=== PATIENT | male | born 1950 | race Caucasian/White ===

== ENCOUNTER 2017-09-28 16:13 | Emergency (ER) | payer OTHER ==
--- NOTE | 2017-09-28 16:35 | CPEKG ---
Heart Rate: 72 RR Interval: 833 P-R Interval: 172 QRSD Interval: 98 QT Interval: 416 QTC Interval: 456 P [place]: 27 QRS [place]: -21 T Wave [place]: 24 EKG Severity - OTHERWISE NORMAL ECG - EKG Impression: SINUS RHYTHM EKG Impression: VENTRICULAR PREMATURE COMPLEX EKG Impression: BORDERLINE LEFT AXIS DEVIATION Electronically Signed By: Ruthann Milan 28-Sep-2017 22:13:29
--- NOTE | 2017-09-28 16:46 | EDPHY ---
HPI/HX/ROS/PE/MDM Narrative: CHIEF COMPLAINT: Abnormal EKG HISTORY OF PRESENT ILLNESS: The patient is 67 y/o male with a history of an aortic valve stenosis and hypertension complaining of an abnormal EKG today. He went to see his PCP today for Medicare requirements and subsequently had an abnormal EKG which concerned his PCP. She advised that the patient present to the emergency department. In April, he saw Dr. Painting, quotation checker, regarding his hypertension medications and had a normal EKG at this time. Dr. Painting did preform an echocardiogram and noticed aortic valve stenosis. Denies chest pain, shortness of breath, pedal edema. Takes aspirin daily. No fever, chills, palpitations, vomiting, diarrhea, urinary complaints, headache , lightheadedness. REVIEW OF SYSTEMS: Aside from elements discussed in the HPI, a comprehensive 10-point review of systems was reviewed and is negative. PAST MEDICAL HISTORY: Aortic valve stenosis, hypertension, GERD SOCIAL HISTORY: Family at bedside, lives in [facility] VITAL SIGNS: Reviewed by me GENERAL: Well-developed, well-nourished, resting comfortably in no respiratory distress. HEENT: Atraumatic. Eyes: No icterus, no injection. Mouth: moist mucous membranes. No erythema or lesions. Neck: supple with no adenopathy. LUNGS: Clear to auscultation bilaterally, no wheezes, rhonchi or rales. CARDIAC: Regular rate and rhythm, soft systolic murmur, no rubs or gallops. ABDOMEN: Soft, nontender, nondistended, bowel sounds normal. BACK: No CVA tenderness. EXTREMITIES: No trauma. No edema. Range of motion is normal throughout. NEURO: Alert and oriented, grossly nonfocal. SKIN: Warm and dry, no rash. PSYCHIATRIC: Normal mentation, no agitation. Portions of this note were transcribed by a medical historian. I personally performed a history, physical exam, medical decision making, and confirmed accuracy of information the transcribed note. ED Course: The patient is 67 y/o male with a history of an aortic valve stenosis and hypertension presenting with an abnormal EKG today. His physical exam is normal and I do not hear a heart murmur. Labs and EKG ordered. The patient's family is requesting a cardiology consult. 1631: 12-LEAD EKG: Please see the full report in [facility]. My interpretation: Sinus rhythm with a rate of 72 Patient's EKG from his primary care physician's office demonstrates T-wave inversions in the inferior leads. EKG obtained in the emergency department here , is similar morphology to most recent EKG from April. All of the T-wave inversions have resolved themselves. I suspect lead misplacement. I discussed this with the patient and family. 1702: Dr. Winters, quotation checker, present in the emergency department. He agreed to speak with the patient regarding the EKG changes. He agrees most likely scenario is limb lead displacement. Lab work demonstrates normal chemistries, negative troponin. 1710: Reassessed patient and discussed normal EKG and laboratory findings. Return precautions provided; patient is comfortable with this plan. MDM: Differential diagnoses for the patient's symptom complex was considered including but not limited to acute coronary syndrome, electrolyte abnormalities , coronary artery disease, cardiac ischemia, lead misplacement. - Data Points Laboratory Results: Laboratory Results 09/28/17 16:45 09/28/17 16:45 General Time Seen by Provider: 09/28/17 16:37 Initial Vital Signs: Initial Vital Signs Temperature (C) 36.9 C 09/28/17 16:22 Heart Rate 71 09/28/17 16:22 Respiratory Rate 18 09/28/17 16:22 Blood Pressure 149/99 H 09/28/17 16:22 O2 Sat (%) 97 09/28/17 16:22 O2 Delivery Mode Room Air O2 (L/minute) 2 Allergies/Adverse Reactions: No Known Allergies Allergy (Unverified 06/18/15 16:00) Home Medications: Medication Instructions Recorded HCTZ (*) 09/28/17 Lisinopril 09/28/17 Departure - Departure Disposition: Home, Routine, Self-Care Clinical Impression: History of abnormal electrocardiogram Condition: Good Instructions: Chest Pain (ED) Additional Instructions: Follow-up with your primary doctor within 72 hours. Return to the Emergency Department for fever, chest pain, shortness of breath, increasing pain or other worsening of condition. Follow up with a quotation checker for further testing, as soon as possible, within one week. As we discussed, it is impossible to fully rule out heart disease as the cause of your chest pain in the emergency department. We would be happy to reevaluate you and observe you in the hospital at any time. Referrals: Kailey Santoyo MD [Primary Care Provider] - As per Instructions Roger Painting MD [Medical Doctor] - As per Instructions Report Scribed for: Ruthann Milan Report Scribed by: Tejal Madden Date of Report: 09/28/17 Time of Report: 16:46
[2017-09-28 17:39] LABS: PLATELET COUNT 260 10^3/uL (150-400)
[2017-09-28 18:27] VITALS: BP 138/66
== END 2017-09-28 18:26 | disposition home or self-care (01) ==
DX: R94.31 Abnormal electrocardiogram [ECG] [EKG] (principal); I10 Essential (primary) hypertension

== ENCOUNTER → 2018-01-30 | Outpatient (CLI) | payer OTHER ==
--- NOTE | 2018-01-30 15:04 | ECHO ---
[email or web address] [address] [address] Main: [phone] Fax: Transthoracic Echocardiogram Name: MARINE ALEJANDRO MR#: [id number] Study Date: 01/30/2018 Study Time: 01:38 PM Date of : 1950 Age: 67 year(s) Height: 180.3 cm (71 in.) Weight: 87.09 kg (192 lb.) BSA: 2.07 m2 Gender: Male Examination: Echo Indication: hypertension; hperlipemia Image Quality: Adequate Contrast: Requested by: Roger Painting BP: / Heart Rate: Rhythm: Indication: hypertension; hperlipemia Procedure Staff Air Grinder: Michelle Bhakta [facility] Reading Physician: Tom Winters MD Requesting Provider: Conclusions: Normal size left ventricle. Mild concentric LV hypertrophy. Normal global systolic LV function. EF is 59 %. No regional wall motion abnormality. Normal diastolic LV function. Normal size right ventricle. Normal RV function. The left atrium is normal in size. The right atrium is normal in size. The mitral valve is normal in appearance and function. There is no significant mitral valve regurgitation. No mitral stenosis is present. The aortic valve is tri-leaflet and functions normally. Trivial aortic valve regurgitation. No aortic valve stenosis is present. The tricuspid valve is normal in appearance and function. Trivial tricuspid valve regurgitation. Pulmonary artery pressure is not obtained due to inadequate TR jet. Trivial pulmonic valve regurgitation. Normal size aortic root measuring 3.3 cm. Mildly dilated ascending aorta measuring 4.0 cm. Normal size and course of the IVC. No pericardial effusion. The patient has a dilated aortic root and should be considered for follow up ehcocardiogram on an annual basis to track its size. No significant valvular heart disease. Measurements: Chambers Valvular Assessment AV/MV Valvular Assessment TV/PV Patient: MARINE ALEJANDRO Study Date: 01/30/2018 Page 1 of 3 01:38 PM Normal Normal Normal Name Value Range Name Value Range Name Value Range Ao Denisse (MM): 3.3 cm (2.2 cm-3.7 AV Vmax: 1.13 m/s (1 m/s-1.7 PV Vmax: 0.92 m/s (0.6 m/s-0.9 cm) m/s) m/s) IVSd (2D): 1.2 cm (0.6 cm-1.1 AV maxP mmHg ( - ) PV PGmax: 3 mmHg ( - ) cm) LVOT Vmax: 1.07 m/s (0.7 m/s-1.1 LVDd (2D): 4.5 cm (4.2 cm-5.9 m/s) cm) EVAN (Vmax): 3.3 cm2 ( - ) LVDs (2D): 3.0 cm (2.1 cm-4 MV E Vmax: 0.58 m/s ( - ) cm) MV A Vmax: 0.76 m/s ( - ) LVPWd (2D): 1.0 cm (0.6 cm-1 MV E/A: 0.76 ( - ) cm) LVOTd 2.1 cm 2.1 cm mm LVEF (BP): 59 % (>=55 %) RVDd(2D): 2.9 cm (1.9 cm-3.8 cmmm) Continued Measurements: Chambers Valvular Assessment AV/MV Name Value Name Value LADs Lon.2 cm MV DecTime: 331 m/s LA Area: 18.2 cm2 MV E' Septal: 0.04 m/s LA Volume: 50 ml MV E/E' Septal: 14.80 LA Volume Index: 24.2 ml/m2 MV E/E' Lateral: 7.60 TAPSE: 2.1 cm RA Area: 14.3 cm2 Additional Vessels Name Value Ao Ascendin.0 cm Findings: Left Ventricle: Normal size left ventricle. Mild concentric LV hypertrophy. Normal global systolic LV function. EF is 59 %. No regional wall motion abnormality. Normal diastolic LV function. Right Ventricle: Normal size right ventricle. Normal RV function. Left Atrium: The left atrium is normal in size. Right Atrium: The right atrium is normal in size. Mitral Valve: The mitral valve is normal in appearance and function. There is no significant mitral valve regurgitation. No mitral stenosis is present. Aortic Valve: The aortic valve is tri-leaflet and functions normally. Trivial aortic valve regurgitation. No aortic valve stenosis is present. Tricuspid Valve: The tricuspid valve is normal in appearance and function. Trivial tricuspid valve regurgitation. Pulmonary artery pressure is not obtained due to inadequate TR jet. Pulmonic Valve: The pulmonic valve is normal in appearance. Trivial pulmonic valve regurgitation. Aorta: Normal size aortic root measuring 3.3 cm. Mildly dilated ascending aorta measuring 4.0 cm. IVC: Normal size and course of the IVC. Pericardium: No pericardial effusion. Patient: MARINE ALEJANDRO Study Date: 01/30/2018 Page 2 of 3 01:38 PM (No Signature Object) Patient: MARINE ALEJANDRO Study Date: 01/30/2018 Page 3 of 3 01:38 PM [id number]
== END ==
LOC: FCP 13:15
PROVIDERS: ATTEND Internal Medicine Interventional Cardiology
DX: Z91.89 Other specified personal risk factors, not elsewhere classified (principal); I10 Essential (primary) hypertension; E78.5 Hyperlipidemia, unspecified